=== PATIENT | female | born 1950 ===

== ENCOUNTER → 2022-05-15 15:09 | Outpatient (BNVA) | payer MEDICARE, SELFPAY | PROVIDERS: PCP Family Medicine; Visit Provider Hospitalist | DX: R07.9 Chest pain, unspecified (principal); R05.3 Chronic cough; J45.20 Mild intermittent asthma, uncomplicated | CPT/HCPCS: 99202 ==

== ENCOUNTER 2022-06-16 16:16 | Outpatient (REF) | payer MEDICARE, SELFPAY ==
--- NOTE | 2022-06-16 17:36 | PFT_ITS ---
INDICATION: Chronic cough. SPIROMETRY: FEV1 to FVC of 77% with an FEV1 2.48 which is 94% predicted and an FVC of 3.21 L, which is 92% predicted. No significant response to bronchodilators noted. Maximum voluntary ventilation 97% predicted. LUNG VOLUMES: Total lung capacity 86% predicted. DIFFUSION CAPACITY: DLCO of 72% predicted. COMPARISONS: None. INTERPRETATION: No obstructive nor restrictive ventilatory defects identified. No significant response to bronchodilators noted. Normal maximum voluntary ventilation. Lung volumes are within normal limits. The patient does have a mild diffusion impairment. Clinical correlation warranted. Eleazar Dia MD MR/MODL / [id number]
== END 2022-06-16 16:17 | disposition home or self-care (01) ==
LOC: HO.RESP 16:16
PROVIDERS: PCP Family Medicine; Visit Provider Hospitalist
DX: R05.3 Chronic cough (principal)
CPT/HCPCS: 94060; 94727; 94729

== ENCOUNTER → 2022-07-20 15:38 | Outpatient (BNVA) | payer MEDICARE, SELFPAY | PROVIDERS: PCP Family Medicine; Visit Provider Hospitalist | DX: J45.20 Mild intermittent asthma, uncomplicated (principal); R05.3 Chronic cough | CPT/HCPCS: 99212 ==

== ENCOUNTER 2023-08-27 14:08 | Outpatient (AMB) | payer MEDICARE, SELFPAY ==
[2023-08-27 14:13] VITALS: PULSE 84; O2SAT 96; BMI 28.1
--- NOTE | 2023-08-27 14:13 | MHC.OFFVIS ---
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 Apparently last year she developed COVID x2 and then in February she developed another viral syndrome. Likely RSV. She started developing significant chest tightness and coughing. Moderate to severe. She went to an urgent care. She did test negative for flu and she had tested negative for COVID before the hand. She was given prednisone and also antibiotics by primary care doctor. Clinically the patient is feeling better now after 5 weeks. She is close to her baseline. She is not using her rescue inhaler. She still complains of some chest discomfort although is reproducible on the left side. The patient does also complains of some reflux disease. Her last pulmonary function studies were back from 2019. Therefore will have her get an x-ray and PFTs in her come back. Will make sure she has a rescue inhaler this time. The patient also has significant tendinopathy and bursitis. She had a bad reaction to the quinolones in the past. 07/20/2022 the patient is here for a pulmonary follow-up visit. The patient overall is feeling about the same. She still feeling that difficulty with taking a deep breath in and clearing up the lungs. Sometimes she the some chest tightness. She does use her inhaler as needed. She had a chest x-ray done at [facility] with demonstrating no acute disease. We did review her pulmonary function studies demonstrating no obstructive nor restrictive process. No response to bronchodilators noted. Mild diffusion impairment. On examination she does have increased prolonged expiratory phase with some scattered rhonchi. I do believe that she will benefit from inhaled cortical steroid. I will have her start Symbicort at this time to provide her some relief. I did give her instructions on how want her to use it. In the meantime she still continues to have significant hip pain that keeps her from being able to exercise regularly. 08/27/2023 the patient is here for pulmonary follow-up visit. The patient does not use any maintenance inhalers at this time. She does have a rescue inhaler. Although she has been noticing some increased chest tightness. She also has significant allergies. Specially in the springtime. Unfortunately she has been feeling well and she hurt her left knee. She is following closely with orthopedics. she is having significant pain. I will provide her with some pain medication that she can take for now as needed. still being touch with her orthopedic doctor and they will continue her pain management medications then. [facility] Medical History (Updated 08/29/23 @ 22:57 by Eleazar Dia MD) Knee pain Reactive airway disease Cough Chest pain Social History (Updated 05/15/22 @ 15:20 by ALEX Robledo) Patient Tobacco Use Status: Former Tobacco user Tobacco use type: Cigarette Years Smoked: 5 Years Review of Systems Const Denies fever(s) Eyes Denies change in vision ENT Denies change in voice Card Denies chest pain and Reports dyspnea on exertion Resp Reports cough and Reports dyspnea on exertion GI Reports no additional complaints Musc Reports no additional complaints Skin/Breast Denies rash Neuro Reports no additional complaints Physical Exam Vital Signs: Last Vital Signs Pulse 84 08/27/23 14:13 Pulse Ox 96 08/27/23 14:13 Oxygen Delivery Method Room Air 08/27/23 14:13 BMI result Body Mass Index 28.1 Const General: comfortable HEENT Head: Yes normocephalic Neck Neck: Yes supple Chest Chest palpation & inspection: normal inspection of the chest Resp Effort & Inspection: normal respiratory effort Auscultation: no rhonchi and diminished lung sounds Cardio Rate: regular rate Rhythm: regular rhythm Heart sounds: S1 normal heart sound present and S2 normal heart sound present GI Auscultation: normal bowel sounds Skin General skin exam: no rashes or lesions noted Extrem General: Yes no clubbing, cyanosis or edema Assessment & Plan Assessment & Plan (1) Cough: Code(s): R05.9 - Cough, unspecified Category: Medical Qualifiers: Cough type: chronic Qualified Code(s): R05.3 - Chronic cough (2) Reactive airway disease: Code(s): J45.909 - Unspecified asthma, uncomplicated Category: Medical Qualifiers: Asthma complication type: uncomplicated Asthma persistence: intermittent Asthma severity: mild Qualified Code(s): J45.20 - Mild intermittent asthma, uncomplicated (3) Knee pain: Code(s): M25.569 - Pain in unspecified knee Category: Medical Qualifiers: Chronicity: unspecified Laterality: left Qualified Code(s): M25.562 - Pain in left knee Plan STEVEN as needed stop Symbicort pain management, will f/u with orthopedics F/U 10-12 months Medications: New oxycodone-acetaminophen 5-325 mg (Percocet) Partial Fill upon patient request. 1 tab PO Q8H PRN 30 tabs 0RF pain 10 days prednisone 20 mg PO DAILY 10 tabs 0RF 10 days Coding Level of Care Code Est Pt Level 4 (03401) Diagnoses Chronic cough R05.3 Cough type: chronic Mild intermittent reactive airway disease without complication J45.20 Asthma complication type: uncomplicated Asthma persistence: intermittent Asthma severity: mild Left knee pain, unspecified chronicity M25.562 Chronicity: unspecified Laterality: left Time Spent (min) 15
== END 2023-08-27 14:44 | disposition home or self-care (01) ==
PROVIDERS: PCP Family Medicine; Visit Provider Hospitalist
DX: R05.3 Chronic cough (principal); J45.20 Mild intermittent asthma, uncomplicated; M25.562 Pain in left knee
CPT/HCPCS: 99214

== ENCOUNTER → 2023-08-27 14:08 | Outpatient (BNVA) | payer MEDICARE, SELFPAY | PROVIDERS: PCP Family Medicine; Visit Provider Hospitalist | DX: J45.20 Mild intermittent asthma, uncomplicated (principal); M25.562 Pain in left knee; R05.3 Chronic cough | CPT/HCPCS: 99212 ==

== ENCOUNTER 2024-02-29 14:40 | Outpatient (AMB) | payer MEDICARE, SELFPAY ==
[2024-02-29 14:51] VITALS: PULSE 76; O2SAT 98
--- NOTE | 2024-02-29 14:51 | MHC.OFFVIS ---
Vital Signs 02/29/24 14:51 Height 5 ft 8 in Pulse 76 Pulse Source Pulse Oximeter Pulse Oximetry (%) 98 Oxygen Delivery Method Room Air Intake Visit Reasons: Asthma follow-up Living Manager Required: No Associate Justice: Associate Justice offered & declined Accompanied by: Self / Same As Patient Allergies levofloxacin [Levaquin] Allergy (Unknown, Verified 02/29/24 14:57) Back Pain penicillin V Allergy (Unknown, Verified 02/29/24 14:57) Swelling Sulfa (Sulfonamide Antibiotics) Allergy (Unknown, Verified 02/29/24 14:57) Hives Medication List - Last Reconciled 02/29/24 by Cynthia Norman LPN albuterol sulfate 90 mcg/actuation (Ventolin HFA) 2 puffs inhalation Q4-6H PRN cetirizine 10 mg PO DAILY PRN cholecalciferol (vitamin D3) 25 mcg PO DAILY coenzyme Q10 10 mg PO TID fluticasone propionate 50 mcg/actuation sprays intranasal irbesartan 150 mg PO BID mecobalamin (vitamin B12) mcg PO oxycodone-acetaminophen 5-325 mg (Percocet) 1 tab PO Q8H PRN 10 days prednisone 20 mg PO DAILY 10 days HPI Comments Details: The patient is 74-year-old woman with a known history of asthma. Apparently last year she developed COVID x2 and then in February she developed another viral syndrome. Likely RSV. She started developing significant chest tightness and coughing. Moderate to severe. She went to an urgent care. She did test negative for flu and she had tested negative for COVID before the hand. She was given prednisone and also antibiotics by primary care doctor. Clinically the patient is feeling better now after 5 weeks. She is close to her baseline. She is not using her rescue inhaler. She still complains of some chest discomfort although is reproducible on the left side. The patient does also complains of some reflux disease. Her last pulmonary function studies were back from 2019. Therefore will have her get an x-ray and PFTs in her come back. Will make sure she has a rescue inhaler this time. The patient also has significant tendinopathy and bursitis. She had a bad reaction to the quinolones in the past. 07/20/2022 the patient is here for a pulmonary follow-up visit. The patient overall is feeling about the same. She still feeling that difficulty with taking a deep breath in and clearing up the lungs. Sometimes she the some chest tightness. She does use her inhaler as needed. She had a chest x-ray done at [facility] with demonstrating no acute disease. We did review her pulmonary function studies demonstrating no obstructive nor restrictive process. No response to bronchodilators noted. Mild diffusion impairment. On examination she does have increased prolonged expiratory phase with some scattered rhonchi. I do believe that she will benefit from inhaled cortical steroid. I will have her start Symbicort at this time to provide her some relief. I did give her instructions on how want her to use it. In the meantime she still continues to have significant hip pain that keeps her from being able to exercise regularly. 08/27/2023 the patient is here for pulmonary follow-up visit. The patient does not use any maintenance inhalers at this time. She does have a rescue inhaler. Although she has been noticing some increased chest tightness. She also has significant allergies. Specially in the springtime. Unfortunately she has been feeling well and she hurt her left knee. She is following closely with orthopedics. she is having significant pain. I will provide her with some pain medication that she can take for now as needed. still being touch with her orthopedic doctor and they will continue her pain management medications then. 02/29/2024 the patient is here for a pulmonary follow-up visit. Overall the patient has been doing okay from a respiratory status. She does have some difficulty breathing she has a hard time expanding her lungs. And this is [id number] severity. She did have a rescue inhaler and this provided some relief. And prior to that she had a Symbicort inhaler that she did not want to use. I do believe that she benefits from a maintenance inhaler and something like Anoro may be effective as we can minimize the amount of inhaled steroids that she is taking. The patient will have a chest x-ray done whenever able at [facility]. The patient also has been having severe hip and gluteal pain. This is significant bursitis in significant degenerative changes that she has had throughout the years. The patient has excruciating pain in is very very frustrated with her degree of pain. She was given oxycodone but she does not want to take pain medications. I will place a referral to a pain management so they can assess to see if there is anything that they can provide alternative therapies to provide her some relief in her discomfort. I also center a small course of prednisone that she can try as well to gain some relief. Patient also will go ahead and get her needed vaccines which in this case includes the flu in the RSV vaccine that she still needs to get. Patient follow-up in the fall otherwise if she has any issues she will call for an earlier assessment. [facility] Medical History (Updated 02/29/24 @ 22:20 by Eleazar Dia MD) Dyspnea Chronic gluteal pain Hip pain Knee pain Reactive airway disease Cough Chest pain Social History Patient Tobacco Use Status: Former Tobacco user Tobacco use type: Cigarette Years Smoked: 5 Years Review of Systems Const Denies fever(s) Eyes Denies change in vision ENT Denies change in voice Card Denies chest pain and Reports dyspnea on exertion Resp Reports cough and Reports dyspnea on exertion GI Reports no additional complaints Musc Reports as per HPI, Reports abnormal gait, Reports arthralgias, Reports joint swelling and Reports limited range of motion Skin/Breast Denies rash Neuro Reports no additional complaints and Reports abnormal gait Physical Exam Vital Signs: Last Vital Signs Pulse 76 02/29/24 14:51 Pulse Ox 98 02/29/24 14:51 Oxygen Delivery Method Room Air 02/29/24 14:51 Const General: comfortable HEENT Head: Yes normocephalic Neck Neck: Yes supple Chest Chest palpation & inspection: normal inspection of the chest Resp Effort & Inspection: normal respiratory effort Auscultation: no rhonchi and diminished lung sounds Cardio Rate: regular rate Rhythm: regular rhythm Heart sounds: S1 normal heart sound present and S2 normal heart sound present GI Auscultation: normal bowel sounds Skin General skin exam: no rashes or lesions noted Extrem General: Yes no clubbing, cyanosis or edema Assessment & Plan Assessment & Plan (1) Cough: Code(s): R05.9 - Cough, unspecified Category: Medical Qualifiers: Cough type: chronic Qualified Code(s): R05.3 - Chronic cough (2) Reactive airway disease: Code(s): J45.909 - Unspecified asthma, uncomplicated Category: Medical Qualifiers: Asthma complication type: uncomplicated Asthma persistence: intermittent Asthma severity: mild Qualified Code(s): J45.20 - Mild intermittent asthma, uncomplicated (3) Knee pain: Code(s): M25.569 - Pain in unspecified knee Category: Medical Qualifiers: Chronicity: unspecified Laterality: left Qualified Code(s): M25.562 - Pain in left knee (4) Hip pain: Code(s): M25.559 - Pain in unspecified hip Category: Medical Qualifiers: Laterality: unspecified laterality Qualified Code(s): M25.559 - Pain in unspecified hip (5) Chronic gluteal pain: Code(s): M79.18 - Myalgia, other site; G89.29 - Other chronic pain Category: Medical (6) Dyspnea: Code(s): R06.00 - Dyspnea, unspecified Category: Medical Qualifiers: Dyspnea type: dyspnea on exertion Qualified Code(s): R06.09 - Other forms of dyspnea Plan STEVEN as needed consider starting Anoro daily pain management, referral to pain clinic for an eval Trial prednisone F/U 10-12 months Orders: Orders XR chest 2V Today R06.00 - Dyspnea, unspecified Referrals Pain Management Referral G89.29 - Other chronic pain, M25.559 - Pain in unspecified hip, M79.18 - Myalgia, other site Medications: New prednisone PO daily; Take 2 tabs daily x 5 days, then 1 tablet daily x 5 days 15 tabs 0RF 10 days umeclidinium-vilanterol 62.5-25 mcg/actuation (Anoro Ellipta) 1 inh inhalation DAILY 60 ea 11RF J44.89 - Other specified chronic obstructive pulmonary disease Refilled albuterol sulfate 90 mcg/actuation (Ventolin HFA) 2 puffs inhalation Q4-6H PRN 8.5 grams 11RF wheezing Coding Level of Care Code Est Pt Level 4 (81394) Diagnoses Chronic cough R05.3 Cough type: chronic Mild intermittent reactive airway disease without complication J45.20 Asthma complication type: uncomplicated Asthma persistence: intermittent Asthma severity: mild Left knee pain, unspecified chronicity M25.562 Chronicity: unspecified Laterality: left Hip pain, unspecified laterality M25.559 Laterality: unspecified laterality Chronic gluteal pain M79.18; G89.29 Dyspnea on exertion R06.09 Dyspnea type: dyspnea on exertion Time Spent (min) 16
--- OUTSIDE RECORDS SUMMARY | 2024-03-07 15:01 | XMS_ITS | Continuity of Care Document ---
Author Organization [facility] Address [address] [address]- 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 Refills 0, Maintenance, Cane Dx:I63.5, 11/13/19 12:38:00 PM EDT, Supply Start Date: 11/13/19 Status: Ordered Quantity: 1.0 Unit: each Repeat number: 1 CoQ10 = 100 mg, By Mouth, Daily, 0 Refills, Maintenance, 05/10/19 1:27:00 PM EST Start Date: 05/10/19 Status: Ordered Repeat number: 1 Flonase Daily, 0 Refills, Maintenance, 06/02/11 9:46:58 AM EST Start Date: 06/02/11 Status: Ordered Repeat number: 1 indomethacin 25 mg oral capsule 1 capsule = 25 mg, By Mouth, Daily, PRN Headache, with food or milk, # 10 capsule, 0 Refills, Maintenance, 07/28/23 10:17:00 PM EDT, Capsule, [id number], Partial fill upon patient request if the prescription is for a schedule II opioid drug., 173, cm, 07/28/23 14:36:00 EDT, Height Start Date: 07/28/23 Status: Ordered Quantity: 10.0 Unit: capsule Repeat number: 1 irbesartan 300 mg oral tablet 1 tablet = 300 mg, By Mouth, Daily, # 90 tablet, 0 Refills, Maintenance, 11/10/19 7:45:00 PM EDT, Tablet Start Date: 11/10/19 Status: Ordered Quantity: 90.0 Unit: tablet Repeat number: 1 Manda Krill [employer] [place]-3 = 1,200 mg, By Mouth, 3 times a day, 0 Refills, Maintenance, 06/18/23 2:47:00 PM EDT, Partial fill upon patient request if the prescription is for a schedule II opioid drug. Start Date: 06/18/23 Status: Ordered Repeat number: 1 Repatha SureClick 140 mg/mL subcutaneous solution = 140 mg, Subcutaneous Infusion, Every 14 days, # 1 each, 0 Refills, Maintenance, 06/18/23 4:21:00 PM EDT, [facility] #[id number], Partial fill upon patient request if the prescription is for a schedule II opioid drug., 173, cm, 06/18/23 14:45:00 EDT, Height, 86.6, kg, 06/20/21 12:35:00 EDT, Dry Weight Start Date: 06/18/23 Status: Ordered Quantity: 1.0 Unit: each Repeat number: 1 turmeric = 500 mg, By Mouth, Daily, 1500 MG DAILY, 0 Refills, Maintenance, 05/10/19 1:27:00 PM EST Start Date: 05/10/19 Status: Ordered Repeat number: 1 Vitamin B12 1000 mcg oral tablet 1 tablet = 1,000 mcg, By Mouth, Daily, 0 Refills, Maintenance, 05/06/22 8:56:00 AM EST, Partial fill upon patient request if the prescription is for a schedule II opioid drug. Start Date: 05/06/22 Status: Ordered Repeat number: 1 Vitamin D3 = 1,000 International_Units, By Mouth, Daily, 0 Refills, Maintenance, 05/10/19 1:27:00 PM EST Start Date: 05/10/19 Status: Ordered Repeat number: 1 Walker Dx:I63.5 Walker Dx:I63.5, See Instructions, # 1 each, Refills 0, Tot. Refills 0, Maintenance, Walker Dx:I63.5, 11/13/19 12:39:00 PM EDT, Supply Start Date: 11/13/19 Status: Ordered Quantity: 1.0 Unit: each Repeat number: 1 Zinc = 140 mg, By Mouth, Daily, 0 Refills, Maintenance, 05/06/22 8:56:00 AM EST, Partial fill upon patientrequest if the prescription is for a schedule II opioid drug. 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 Social History Social History Type Response Smoking Status Former smoker, quit more than 30 days ago entered on: 06/18/23 Sex Sex Representation Female (finding) Patient Care team information Care Team Personnel Name: Nicola CARRILLO, Daniella Snyder Position: [facility] Physician - Primary Care Member Role: PCP Address: [address] [place] [address]- Telecom: Name: Carmela Martinez Position: [facility] Outreach Member Role: Lifetime Consulting Physician Name: Dolly Soliman RN Position: [facility] RN Member Role: Primary Care Nurse Name: Miguel Angel Vogt DO Position: [facility] Renal MD Member Role: Lifetime Consulting Physician Address: [address] [place], [place] [address] [place], [place] [address] Telecom: Name: Sue Quick Position: [facility] AMB Nurse Member Role: Lifetime Consulting Physician Care Team Related Persons Name: LAUREL SINGLETARY Name: NICK BOURGEOIS Insurance Providers Guarantor name: SALOMON HANCOCK Health Plan Information #: 1 Payer: MEDICARE PART B OUTPT Member Number: NA Policy Number: NA Group Number: NA Health Plan Information #: 2 Payer: [facility] SUP Member Number: NA Policy Number: NA Group Number: NA
--- OUTSIDE RECORDS SUMMARY | 2024-03-07 15:01 | XMS_ITS ---
Author Name [facility] Organization Unknown History of Medication Use Medication Directions Dispensed Refills Start Date End Date Stat us No medication inform ation recorded 07/24/2023 active Allergies Allergen Reaction Severity Comment Documented Date Source Statu s KIM Teran [facility] Problems Problem Status Onset Date Problem Type Date of Resoluti on Source Bronchitis, not specified as acute or chronic active 2023-07-21 ProblemAct [facility]
== END 2024-02-29 15:26 | disposition home or self-care (01) ==
LOC: HO.HPS 14:40
PROVIDERS: PCP Family Medicine; Visit Provider Hospitalist
DX: R05.3 Chronic cough (principal); J45.20 Mild intermittent asthma, uncomplicated; M25.562 Pain in left knee; M25.559 Pain in unspecified hip; M79.18 Myalgia, other site; G89.29 Other chronic pain; R06.09 Other forms of dyspnea
CPT/HCPCS: 99214

== ENCOUNTER → 2024-02-29 14:40 | Outpatient (BNVA) | payer MEDICARE, SELFPAY | PROVIDERS: PCP Family Medicine; Visit Provider Hospitalist | DX: J45.20 Mild intermittent asthma, uncomplicated (principal); R05.3 Chronic cough; M25.562 Pain in left knee; M25.559 Pain in unspecified hip; M79.18 Myalgia, other site; G89.29 Other chronic pain; R06.09 Other forms of dyspnea; Z79.899 Other long term (current) drug therapy | CPT/HCPCS: 99212 ==

== ENCOUNTER 2024-03-13 09:20 | Outpatient (AMB) | payer MEDICARE, SELFPAY ==
--- NOTE | 2024-03-13 09:21 | MHC.OFFVIS ---
Vital Signs 03/13/24 09:25 Height 5 ft 8 in Weight 190 lb BMI 28.9 BP 145/68 H Blood Pressure Location Lt brachial Position Sitting Respiration 16 Pulse 82 Pulse Source Pulse Oximeter Pulse Oximetry (%) 99 Oxygen Delivery Method Room Air Intake Visit Reasons: Pain in Unspecified Hip & Myalgia Allergies levofloxacin [Levaquin] Allergy (Unknown, Verified 03/13/24 09:26) Back Pain penicillin V Allergy (Unknown, Verified 03/13/24 09:26) Swelling Sulfa (Sulfonamide Antibiotics) Allergy (Unknown, Verified 03/13/24 09:26) Hives Medication List - Last Reconciled 03/13/24 by Magali Nye LPN albuterol sulfate 90 mcg/actuation (Ventolin HFA) 2 puffs inhalation Q4-6H PRN cetirizine 10 mg PO DAILY PRN cholecalciferol (vitamin D3) 25 mcg PO DAILY coenzyme Q10 10 mg PO TID fluticasone propionate 50 mcg/actuation sprays intranasal irbesartan 150 mg PO BID mecobalamin (vitamin B12) mcg PO prednisone 20 mg PO DAILY 10 days tramadol 50 mg PO DAILY PRN HPI HPI Pain in Unspecified Hip & Myalgia: Details: 74-year-old female who presents today to the office for evaluation of pain in unspecified hip and myalgia. She was referred by Dr. Sloan. She states that her pain started more than 7 years ago. She has a history of pneumonia and bursitis and was started on Levaquin and suspects that Levaquin caused hip bursitis. She had been using Symbicort and a rescue inhaler for the past 4-5 years. She has a history of smoking, but she quit at the age of 26. She reports burning pain in her tailbone that radiates upward to her hip. Her pain alleviates with sitting down or lying down on the bed. She suspects that she might have ruptured her left gluteal muscle from a fall. She was backing up on a chair and lost her balance and fell on her left side. She tried to watch her granddaughter's game yesterday, but she was unable to walk. She is able to walk a short distance. She has a lack of mobility and has gained weight. She also has posture issues. She denies any weakness or buckling of the knee. She has had tendinopathy, including swelling and paresthesia down her right foot, for the past six weeks. She has been trying to lose some weight and has lost about 15 lbs. She has been doing Pilates and yoga. She states that she had sacroiliac joint injection and nerve blocks in the past.? [facility] Medical History (Updated 03/13/24 @ 10:03 by López Lazaro MD) Dyspnea Chronic gluteal pain Hip pain Knee pain Reactive airway disease Cough Chest pain Social History Patient Tobacco Use Status: Former Tobacco user Tobacco use type: Cigarette Years Smoked: 5 Years Review of Systems Const All systems reviewed & are unremarkable except as noted in HPI and below Physical Exam Vital Signs: Last Vital Signs Pulse 82 03/13/24 09:25 Resp 16 03/13/24 09:25 BP 145/68 H 03/13/24 09:25 Pulse Ox 99 03/13/24 09:25 Oxygen Delivery Method Room Air 03/13/24 09:25 BMI result Body Mass Index 28.9 General: Appears afebrile. Alert and oriented. Mood and affect appropriate. Follows and participates in conversation appropriately. Respiratory effort is unlabored. Able to transition from sit to stand unassisted. Ambulates with bilaterally normal heel strike and toe off. Results Reviewed Results Reviewed: Lumbar spine images reviewed with the patient. MR KNEE WITHOUT CONTRAST LEFT FINDINGS: Since the prior examination, there has been mild progression of the posterior horn medial meniscal tear. Tear extends deeper into the meniscal substance peripherally than on the previous study and is slightly more pronounced at the undersurface. At the meniscal body, there is increased truncation. Lateral meniscus is intact. Intact anterior cruciate ligament and posterior cruciate ligament. Medial collateral ligament and lateral collateral ligament complex are intact. No osseous contusion. Small knee joint effusion. At the patella, there is cartilage loss at the medial facet, moderate, with milder involvement at the lateral facet. In the femoral sulcus, no focal cartilage defect. In the medial femorotibial compartment, there has been progression of articular cartilage loss particularly at the femoral side of the articulation which shows more diffuse thinning to a greater degree than before. Tibial side involvement is again demonstrated. Lateral femorotibial compartment cartilage is largely intact. Intact extensor mechanism. IMPRESSION: 1. Progressive tearing body and posterior horn medial meniscus. Please note that the patient reports no interval surgery. 2. Progressive articular cartilage loss medial femorotibial compartment, particularly on the femoral side. 3. Moderate patellar chondromalacia. 4. Small knee joint effusion. Assessment & Plan Assessment & Plan (1) Spondylolisthesis, lumbar region: Code(s): M43.16 - Spondylolisthesis, lumbar region Category: Medical Plan 74-year-old female with multiple pain complaints including low back pain, coccyx pain, bilateral hip pain, left knee pain. 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 For thoracic disc herniation and lumbar spondylolisthesis, I ordered a flexion-extension x-ray of her lumbar spine. I also sent a query to our spine surgeon to see if they would require a dedicated thoracic spine MRI for surgical planning of the T10-11 disc herniation. I also went over the lumbar spine images with her including the lumbar spondylolisthesis and the associated lumbar spinal stenosis at L3-4 and L4-5 that will likely require surgical decompression. She denies any lower extremity weakness or bowel or bladder red flag symptoms, however she has been having increasing difficulty with walking with severe gluteal pain over the past few weeks and has been mostly limited to her home, which she finds very frustrating. For her bursitis and hip symptoms, we can consider platelet rich plasma injections in the future. For now she is interested in a PRP injection to her left knee. She has received these before with good effect. I will book her for a left knee PRP injection. She is still exploring where and who she would like to go to for consultation on her spine surgery. I informed her regarding our spine surgery program and she will let me know when she is ready for a referral to be placed. Scribed for Dr. Lazaro by Massimo Lee, medical record retrieval specialist, on 03/13/2024. I, Dr. Lazaro, have personally reviewed and agree with the information entered by the scribe. Orders: Orders XR lumbar spine bending only Today M43.16 - Spondylolisthesis, lumbar region Medications: New celecoxib (Celebrex) 200 mg PO BID 60 caps 2RF Coding Level of Care Code New Pt Level 4 (80314) Diagnoses Spondylolisthesis, lumbar region M43.16
--- OUTSIDE RECORDS SUMMARY | 2024-03-13 09:24 | XMS_ITS | Continuity of Care Document ---
Author Organization [facility] ter Address [address] [place] [id number]- Care Team Providers Care Medical Lab Scientist Name Role Phone Nicola CARRILLO, Daniella Snyder Primary Care Physician [phone] Encounter 03/10/24 - 03/11/[address] [address]- Attending Physician: Not on Staff, Attending MD Referring Physician: Not on Staff, Referring MD Encounter Type: [facility] Allergies, Adverse Reactions, Alerts Substance Criticality Severity [...] Refills, Maintenance, 07/28/23 10:17:00 PM EDT, Capsule, [id number], Partial fill upon patient request if the [...] tablet Repeat number: 1 Manda [employer] Sparks-3 = 1,200 mg, By Mouth, 3 times a day, 0 Refills, Maintenance, 06/18/23 2:47:00 PM EDT, Partial fill upon patient request if the prescription is for a schedule II opioid drug. Start Date: 06/18/23 Status: Ordered Repeat number: 1 Repatha SureClick 140 mg/mL subcutaneous solution = 140 mg, Subcutaneous Infusion, Every 14 days, # 1 each, 0 Refills, Maintenance, 06/18/23 4:21:00 PM EDT, [facility][id number], Partial fill upon patient request if the [...] Care team information Care Team Personnel Name: Daniella Petersen MD Position: [facility] Physician - Primary Care Member Role: PCP Address: [address] [place] [address] Telecom: Name: Carmela Martinez Position: [facility] Outreach Member Role: [employer] Consult[employer] Physician Name: Dolly Soliman RN Position: [facility] RN Member Role: Primary Care Nurse Name: Miguel Angel Vogt DO Position: [facility] Renal MD Member Role: [employer] Consulting Physician Address: [address] [place], [place] [address] [place] [address]- Telecom: Name: Sue Quick Position: [facility] AMB Nurse Member Role: Lifetime Consulting Physician Care Team Related Persons Name: LAUREL SINGLETARY Name: NICK BOURGEOIS Insurance Providers Guarantor name: SALOMON HANCO[employer] Plan Information #: 1 Payer: MEDICARE PART B OUTPT Member Number: NA Policy Number: NA Group Number: NA Health Plan Information #: 2 Payer: [facility] SUP Member Number: NA Policy Number: NA Group Number: NA
[2024-03-13 09:25] VITALS: BP 145/68; PULSE 82; RESP 16; O2SAT 99; BMI 28.9
== END 2024-03-13 10:17 | disposition home or self-care (01) ==
PROVIDERS: PCP Family Medicine; Referring Provider Hospitalist; Visit Provider Internal Medicine
DX: M43.16 Spondylolisthesis, lumbar region (principal)
CPT/HCPCS: 99204

== ENCOUNTER → 2024-03-13 09:20 | Outpatient (BNVA) | payer MEDICARE, SELFPAY | PROVIDERS: PCP Family Medicine; Referring Provider Hospitalist; Visit Provider Internal Medicine | DX: M43.16 Spondylolisthesis, lumbar region (principal) | CPT/HCPCS: 99202 ==